=== PATIENT | male | born 1950 | race Caucasian/White ===

== ENCOUNTER 2018-05-05 05:25 | Day surgery (SDC) | payer MEDICARE ==
[2018-04-25 10:09] LABS: BASOPHILS # (AUTO) 0.1 X10'3 (0-0.2); BASOPHILS % (AUTO) 0.7 % (0-1); EOSINOPHILS # (AUTO) 0.5 X10'3 (0-0.9); EOSINOPHILS % (AUTO) 5.2 % (0-6); LYMPHOCYTES # (AUTO) 1.7 X10'3 (1.1-4.8); MEAN CORPUSCULAR HEMOGLOBIN 30.2 PG (27.0-31.0); MEAN CORPUSCULAR HGB CONC 33.1 % (33.0-36.5); MEAN CORPUSCULAR VOLUME 91.3 FL (78-98); MEAN PLATELET VOLUME 10.7 FL (7.4-10.4); MONOCYTES # (AUTO) 0.9 X10'3 (0-0.9); MONOCYTES % (AUTO) 10.4 % (2-12); NEUTROPHILS # (AUTO) 5.5 X10'3 (1.8-7.7); NEUTROPHILS % (AUTO) 63.7 % (42-75); PRE OP HEMATOCRIT 41.6 % (42.0-52.0); PRE OP HEMOGLOBIN 13.7 g/dL (14.0-17.9); RED BLOOD COUNT 4.55 X10'6 (4.70-6.10); RED CELL DISTRIBUTION WIDTH 14.2 % (11.5-14.5)
[2018-04-25 10:22] LABS: ALBUMIN/GLOBULIN RATIO 1.1 (1.1-1.5); ALKALINE PHOSPHATASE 103 IU/L (46-116); BLOOD UREA NITROGEN 26 MG/DL (7-18); BUN/CREATININE RATIO 22.6 (5.4-32.0); CALCIUM 9.2 MG/DL (8.5-10.1); CHLORIDE 98 MMOL/L (99-107); CREATININE 1.15 MG/DL (0.60-1.10); PRE OP ALT 55 U/L (30-65); PRE OP ANION GAP 6 (8-16); PRE OP AST 33 U/L (10-37); PRE OP BILIRUB, TOTAL 0.4 MG/DL (0.0-1.0); PRE OP POTASSIUM 4.5 MMOL/L (3.4-5.1); PRE OP SODIUM 139 MMOL/L (135-145); TOTAL PROTEIN 7.8 G/DL (6.4-8.2); eGFR 63 ML/MIN
[2018-04-25 10:23] LABS: LARGE PLATELETS FEW; PLATELET ESTIMATE DECREASED; PRE OP PLATELET COUNT 85 X10'3 (140-440)
[2018-04-25 10:26] LABS: PRE OP GLUCOSE 227 MG/DL (70-104)
[2018-04-25 10:27] LABS: HEMOGLOBIN A1C 7.2 % (4.5-6.2)
[~2018-05-05] VITALS: Ht 188 cm; Wt 128.3 kg
[~2018-05-05 05:25] MED LIST: ALB0.5UD IH; ALBU8.5H8 INH; ALLO300T8 PO; ATOR40TA72 PO; FURO40TA4 PO; GABA-532 PO; METF-438 PO; MULT-467 PO; UMEC1DIS INH; VITA1CAP19 PO; ringers solution, lacted 1,000 ML IV SCH
[2018-05-05] MEDS ORDERED: famotidine 20mg tablet PO ONE (05:30)
[2018-05-05] MEDS ORDERED: ipratropium/albuterol 3ml nebule NEB ONE (05:30)
[2018-05-05] MEDS ORDERED: ceFAZolin inj. 3,000 MG in normal saline 100ml IV soln 100 ML IV ONE (05:30)
[2018-05-05 05:45] VITALS: BP 143/80
[2018-05-05] MEDS ORDERED: LIDOcaine 1% (10mg/ml) 2ml vial ONE (05:45)
[2018-05-05] MEDS ORDERED: BUPIVAcaine/PF 2.5mg/ml (0.25%) 10ml vial ONE (06:37)
[2018-05-05] MEDS ORDERED: LIDOcaine 1% 30ml preserv. free vial ONE (07:40)
[2018-05-05] MEDS ORDERED: fentaNYL/PF 50MCG/1 ML 2ML syringe ONE (07:43)
[2018-05-05] MEDS ORDERED: midazolam 2 mg/2 ml injection ONE (07:43)
[2018-05-05] MEDS ORDERED: ketorolac trometh. 30mg/ml inj. ONE (07:47)
[2018-05-05] MEDS ORDERED: ringers solution, lacted 1,000 ML IV SCH (08:06)
[2018-05-05] MEDS ORDERED: meperidine/PF 25mg/ml syringe IV PRN ×3 (08:10)
[2018-05-05] MEDS ORDERED: ondansetron/PF 4mg/2ml inj IV PRN (08:10)
[2018-05-05] MEDS ORDERED: proCHLORperazine 10 MG/2 ml inj IV PRN (08:10)
[2018-05-05] MEDS ORDERED: morphine 4 MG/ML inj SYRINge IV PRN ×2 (08:10)
[2018-05-05 08:25] VITALS: BP 165/95
--- NOTE | 2018-05-05 08:25 | NUR ---
Received from OR via [facility], accompanied by Anesthesiologist DR BURNS and report given by Anesthesiolgist. PT DROWSY BUT APPROPRIATE, DENIES PAIN, RIGTH HAND/WRIST W/DRSG COVERING CDI. PT IS ABLE TO WIGGLE FINGERS, PWD. Addendum: 05/05/18 at 0842 by Alexandra Nicole RN Amended: Links added.
[2018-05-05 08:35] VITALS: BP 164/88
[2018-05-05 08:45] VITALS: BP 162/87
[2018-05-05 08:55] VITALS: BP 160/90
== END 2018-05-05 09:05 | disposition home or self-care (01) ==
LOC: PAS 05:25
PROVIDERS: ATTEND Orthopaedic Surgery Hand Surgery
DX: G56.01 Carpal tunnel syndrome, right upper limb (principal); M65.321 Trigger finger, right index finger; M65.331 Trigger finger, right middle finger; I25.2 Old myocardial infarction; E11.9 Type 2 diabetes mellitus without complications; Z79.899 Other long term (current) drug therapy; Z87.891 Personal history of nicotine dependence; Z72.89 Other problems related to lifestyle; Z95.5 Presence of coronary angioplasty implant and graft
CPT/HCPCS: 26055; 29848; 36415; 71046; 80053; 82948; 83036; 85025; 94640; A6449; J0690; J1885; J2250; J3010; J3490; A7000; J7030; J7120